=== PATIENT | female | born 1940 | race Caucasian/White ===

== ENCOUNTER 2019-08-24 10:37 | Outpatient (CLI) | payer BC, MEDICARE, SELFPAY ==
--- NOTE | ~2019-08-24 | DEXA_ITS ---
Bone Density Report Name: Sandra Brar Age: 79 Sex: Female Ethnicity: White Date of : 1940 Indication: postmenopausal; height loss; cancer; hysterectomy; Referring Provider: Carlos Arnold Study: Bone densitometry was performed. Exam Date: August 24, 2019 Accession number: [id number] Bone Density: Region BMD T-score Z-score Classification AP Spine (L2, L3) 0.909 -1.4 1.3 Osteopenia Femoral Neck (Left) 0.682 -1.5 0.8 Osteopenia Total Hip (Left) 0.863 -0.6 1.4 Normal Total Hip Bilateral Avg 0.825 -1.0 1.0 Osteopenia Femoral Neck (Right) 0.638 -1.9 0.4 Osteopenia Total Hip (Right) 0.786 -1.3 0.7 Osteopenia World Health Organization criteria for BMD impression classify patients as: Normal (T-score at or above -1.0), Osteopenia (T-score between -1.0 and -2.5), or Osteoporosis (T-score at or below -2.5). 10-year Fracture Risk: FRAX not reported because: Treated for osteoporosis Clinical Information Provided by Patient: Is being treated for osteoporosis Has used the following medications: Fosamax (i.e. alendronate), Vitamin D Has the following medical conditions: Cancer, Hysterectomy Patient maximum height was 67 Menopause Age: 49 Drinks caffeinated beverages Onset of menses at age 15 Number of children 2 Impression: The patient has low bone mass, based on the Right Femoral Neck T-score. Discussion: It is important to ask patients whether they are taking their medications and to encourage continued and appropriate compliance with their osteoporosis therapies to reduce fracture risk. It is also important to review their risk factors and encourage appropriate calcium and vitamin D intakes, exercise, fall prevention and other lifestyle measures. Follow-Up: Consider a repeat BMD and Vertebral Fracture Assessment (VFA) exam in 2 years or sooner if medically necessary, to reassess this patient's status. Reported by: YENNY on 08/24/2019 11:15:00 AM. Reviewed, dictated and finalized at location [facility]
== END 2019-08-24 10:38 | disposition home or self-care (01) ==
LOC: ANHIMG 10:50
PROVIDERS: PCP Internal Medicine; Visit Provider Internal Medicine Hematology & Oncology
DX: M81.0 Age-related osteoporosis without current pathological fracture (principal); M85.88 Other specified disorders of bone density and structure, other site; M85.852 Other specified disorders of bone density and structure, left thigh; M85.851 Other specified disorders of bone density and structure, right thigh
CPT/HCPCS: 77080

== ENCOUNTER 2019-08-30 09:36 | Outpatient (CLI) | payer BC, MEDICARE, SELFPAY ==
[2019-08-30 10:05] LABS: Basophils Percent Auto 0.7 % (0.2-1.2); Eosinophils Absolute Auto 0.2 K/mm3 (0-0.3); Eosinophils Percent Auto 5.3 % (0-4.4); Hematocrit 38.5 % (37.0-47.0); Hemoglobin 12.6 g/dL (12.0-15.0); Immature Granulocyte Absolute 0.02 K/mm3 (0.00-0.031); Immature Granulocyte Percent A 0.5 % (0-0.5); Lymphocytes Absolute Auto 0.83 K/mm3 (0.9-3.2); Lymphocytes Percent Auto 19.3 % (18.3-44.2); Mean Corpuscular HGB Conc 32.7 g/dl (32-36); Mean Corpuscular Hemoglobin 30.2 pg (26-34); Mean Corpuscular Volume 92.3 fl (80-100); Mean Platelet Volume 10.3 fl (7.4-10.4); Monocytes Absolute Auto 0.5 K/mm3 (0.1-0.6); Monocytes Percent Auto 10.5 % (2.6-8.5); Neutrophils Absolute Auto 2.7 K/mm3 (1.3-6.7); Neutrophils Percent Auto 63.7 % (45.5-73.1); Platelet Count Result 241 k/mm3 (150-375); Red Blood Count 4.17 M/mm3 (4.2-5.4); Red Cell Distribution Width 12.9 % (11.5-14.5); White Blood Count 4.3 K/mm3 (4.5-10.0)
[2019-08-30 10:09] LABS: Blood Urea Nitrogen 8 mg/dL (8-26); Carbon Dioxide 30 mmol/L (22-30); Chloride 100 mmol/L (98-109); Estimated Glomerular Filt Rate > 60; Glucose 76 mg/dL (70-105); Potassium 3.9 mmol/L (3.5-4.9); Sodium 137 mmol/L (138-146)
[2019-08-30 11:58] LABS: Alanine Aminotransferase 18 U/L (4-35); Albumin Level 4.1 g/dL (3.5-5.1); Alkaline Phosphatase 78 U/L (38-126); Aspartate Amino Transferase 28 U/L (14-36); Bilirubin,Total 0.6 mg/dL (0.2-1.3); Blood Urea Nitrogen 9 mg/dL (7-17); Calcium 9.5 mg/dL (8.4-10.2); Carbon Dioxide 28 mmol/L (22-30); Chloride 96 mmol/L (98-107); Estimated Glomerular Filt Rate > 60; Glucose 73 mg/dL (65-105); Potassium 4.3 mmol/L (3.4-5.0); Sodium 136 mmol/L (137-145)
== END 2019-08-30 09:37 | disposition home or self-care (01) ==
PROVIDERS: PCP Internal Medicine; Visit Provider Internal Medicine Hematology & Oncology
DX: C50.511 Malignant neoplasm of lower-outer quadrant of right female breast (principal); Z17.0 Estrogen receptor positive status [ER+]
CPT/HCPCS: 36415; 80048; 80053; 85025

== ENCOUNTER 2019-12-31 08:00 | Outpatient (CLI) | payer BC, MEDICARE, SELFPAY ==
[2019-12-31 08:26] LABS: Alanine Aminotransferase 23 U/L (4-35); Albumin Level 4.6 g/dL (3.5-5.1); Alkaline Phosphatase 79 U/L (38-126); Aspartate Amino Transferase 50 U/L (14-36); Bilirubin,Total 0.5 mg/dL (0.2-1.3); Blood Urea Nitrogen 14 mg/dL (7-17); Carbon Dioxide 29 mmol/L (22-30); Chloride 101 mmol/L (98-107); Cholesterol 133 mg/dL (0-200); Estimated Glomerular Filt Rate > 60; Glucose 95 mg/dL (65-105); HDL Direct 68 mg/dL; Potassium 4.1 mmol/L (3.4-5.0); Sodium 136 mmol/L (137-145); Triglycerides 89 mg/dL (<150)
[2019-12-31 08:37] LABS: LDL Cholesterol Direct 49 mg/dL
[2019-12-31 08:57] LABS: Thyroid Stimulating Hormone 0.569 uIU/mL (0.465-4.680)
== END 2019-12-31 08:01 | disposition home or self-care (01) ==
LOC: ANHLAB 08:02
PROVIDERS: PCP Nurse Practitioner; Visit Provider Nurse Practitioner
DX: E03.9 Hypothyroidism, unspecified (principal); E78.5 Hyperlipidemia, unspecified
CPT/HCPCS: 36415; 80053; 80061; 84439; 84443

== ENCOUNTER 2020-06-30 10:39 | Outpatient (CLI) | payer BC, MEDICARE, SELFPAY ==
[2020-06-30 11:13] LABS: Alanine Aminotransferase 21 U/L (4-35); Albumin Level 4.5 g/dL (3.5-5.1); Alkaline Phosphatase 77 U/L (38-126); Anion Gap 6 mmol/L (8-16); Aspartate Amino Transferase 32 U/L (14-36); Bilirubin,Total 0.6 mg/dL (0.2-1.3); Blood Urea Nitrogen 11 mg/dL (7-17); Calcium 9.1 mg/dL (8.4-10.2); Carbon Dioxide 30 mmol/L (22-30); Chloride 102 mmol/L (98-107); Cholesterol 175 mg/dL (0-200); Estimated Glomerular Filt Rate > 60; Glucose 108 mg/dL (65-105); HDL Direct 73 mg/dL; Sodium 138 mmol/L (137-145); Triglycerides 113 mg/dL (<150)
[2020-06-30 11:24] LABS: LDL Cholesterol Direct 73 mg/dL
[2020-06-30 11:43] LABS: Thyroid Stimulating Hormone 0.889 uIU/mL (0.465-4.680)
[2020-06-30 11:55] LABS: Vitamin D 25 Hydroxy 51.5 ng/mL
== END 2020-06-30 10:40 | disposition home or self-care (01) ==
PROVIDERS: PCP Internal Medicine; Visit Provider Nurse Practitioner
DX: E78.5 Hyperlipidemia, unspecified (principal); E55.9 Vitamin D deficiency, unspecified; E03.9 Hypothyroidism, unspecified
CPT/HCPCS: 36415; 80053; 80061; 82306; 84443

== ENCOUNTER 2020-07-21 13:16 | Outpatient (CLI) | payer BC, MEDICARE, SELFPAY ==
--- NOTE | ~2020-07-21 | MM_ITS ---
EXAMINATION: MM diagnostic laith BI w archana HISTORY: Right breast cancer in 2019 TECHNIQUE: ML, MLO and craniocaudal 3-D tomosynthesis images of both breasts were performed and synth etic 2-D images were generated. CAD analysis was submitted and interpreted. COMPARISON: 03/12/2019 postbiopsy mammogram 01/14/2019 diagnostic right digital mammogram 12/31/2018 bilateral digital screening mammogram BREAST PARENCHYMAL COMPOSITION: There are scattered areas of fibroglandular density. FINDINGS: There is postoperative change from right partial mastectomy for breast cancer and left redu ction mammoplasty. There is evidence of fat necrosis on the left. There are scattered bilateral benig n breast calcifications. No suspicious mass or suspicious architectural distortion or malignant calcification is evident on ei ther side. IMPRESSION: 1. Status post right partial mastectomy for breast cancer and left reduction mammoplasty 2. No mammographic evidence of malignancy is noted at this time. BI-RADS Category 2: Benign finding(s). Reviewed, dictated and finalized at location A. OLOGIST IMPRESSION: 1. Status post right partial mastectomy for breast cancer and left reduction ma mmoplasty 2. No mammographic evidence of malignancy is noted at this time. BI-RADS Category 2: Benign finding(s).
== END 2020-07-21 13:17 | disposition home or self-care (01) ==
LOC: ANHIMG 13:18
PROVIDERS: PCP Internal Medicine; Visit Provider Internal Medicine Hematology & Oncology
DX: C50.511 Malignant neoplasm of lower-outer quadrant of right female breast (principal); Z17.0 Estrogen receptor positive status [ER+]
CPT/HCPCS: 77061; 77062; 77065; 77066; G0279

== ENCOUNTER 2021-01-05 08:47 | Outpatient (CLI) | payer BC, MEDICARE, SELFPAY ==
[2021-01-05 09:28] LABS: Alanine Aminotransferase 15 U/L (4-35); Albumin Level 4.2 g/dL (3.5-5.1); Alkaline Phosphatase 57 U/L (38-126); Anion Gap 7 mmol/L (8-16); Aspartate Amino Transferase 31 U/L (14-36); Bilirubin,Total 0.7 mg/dL (0.2-1.3); Blood Urea Nitrogen 9 mg/dL (7-17); Calcium 9.1 mg/dL (8.4-10.2); Carbon Dioxide 26 mmol/L (22-30); Chloride 103 mmol/L (98-107); Cholesterol 141 mg/dL (0-200); Estimated Glomerular Filt Rate > 60; Glucose 95 mg/dL (65-105); HDL Direct 67 mg/dL; Potassium 4.1 mmol/L (3.4-5.0); Sodium 136 mmol/L (137-145); Triglycerides 67 mg/dL (<150)
[2021-01-05 09:39] LABS: LDL Cholesterol Direct 48 mg/dL
[2021-01-05 09:57] LABS: Thyroid Stimulating Hormone 0.132 uIU/mL (0.465-4.680)
== END 2021-01-05 08:48 | disposition home or self-care (01) ==
PROVIDERS: PCP Internal Medicine; Visit Provider Internal Medicine
DX: I10 Essential (primary) hypertension (principal); Z79.899 Other long term (current) drug therapy; E55.9 Vitamin D deficiency, unspecified; E03.9 Hypothyroidism, unspecified; E78.5 Hyperlipidemia, unspecified
CPT/HCPCS: 36415; 80053; 80061; 82306; 84443

== ENCOUNTER 2021-02-20 10:12 | Outpatient (CLI) | payer BC, MEDICARE, SELFPAY ==
[2021-02-20 09:28] LABS: Alanine Aminotransferase 17 U/L (4-35); Albumin Level 4.5 g/dL (3.5-5.1); Alkaline Phosphatase 68 U/L (38-126); Anion Gap 6 mmol/L (8-16); Aspartate Amino Transferase 29 U/L (14-36); Bilirubin,Total 0.7 mg/dL (0.2-1.3); Blood Urea Nitrogen 14 mg/dL (7-17); Calcium 9.1 mg/dL (8.4-10.2); Carbon Dioxide 29 mmol/L (22-30); Chloride 102 mmol/L (98-107); Cholesterol 139 mg/dL (0-200); Estimated Glomerular Filt Rate > 60; Glucose 90 mg/dL (65-110); HDL Direct 80 mg/dL; Potassium 4.6 mmol/L (3.4-5.0); Sodium 137 mmol/L (137-145); Triglycerides 67 mg/dL (<150)
[2021-02-20 09:32] LABS: LDL Cholesterol Direct 42 mg/dL
[2021-02-20 09:50] LABS: Thyroid Stimulating Hormone 0.676 uIU/mL (0.465-4.680)
[2021-02-20 19:49] LABS: Vitamin D 25 Hydroxy 63.6 ng/mL
== END 2021-02-20 10:13 ==
PROVIDERS: PCP Internal Medicine; Visit Provider Nurse Practitioner
DX: E03.9 Hypothyroidism, unspecified (principal); E55.9 Vitamin D deficiency, unspecified; M81.0 Age-related osteoporosis without current pathological fracture; E78.5 Hyperlipidemia, unspecified
CPT/HCPCS: 36415; 80053; 80061; 82306; 84443

== ENCOUNTER 2021-07-14 09:18 | Outpatient (CLI) | payer MEDICARE, SELFPAY ==
[2021-07-14 10:07] LABS: Alanine Aminotransferase 19 U/L (4-35); Albumin Level 4.5 g/dL (3.5-5.1); Alkaline Phosphatase 67 U/L (38-126); Anion Gap 8 mmol/L (8-16); Aspartate Amino Transferase 29 U/L (14-36); Bilirubin,Total 0.6 mg/dL (0.2-1.3); Blood Urea Nitrogen 17 mg/dL (7-17); Carbon Dioxide 28 mmol/L (22-30); Chloride 99 mmol/L (98-107); Cholesterol 143 mg/dL (0-200); Estimated Glomerular Filt Rate > 60; Glucose 100 mg/dL (65-110); HDL Direct 74 mg/dL; Potassium 4.3 mmol/L (3.4-5.0); Sodium 135 mmol/L (137-145); Triglycerides 70 mg/dL (<150)
[2021-07-14 10:18] LABS: LDL Cholesterol Direct 50 mg/dL
[2021-07-14 10:37] LABS: Thyroid Stimulating Hormone 0.644 uIU/mL (0.465-4.680)
== END 2021-07-14 09:19 | disposition home or self-care (01) ==
PROVIDERS: PCP Internal Medicine; Visit Provider Internal Medicine
DX: Z51.81 Encounter for therapeutic drug level monitoring (principal); Z79.899 Other long term (current) drug therapy; E78.5 Hyperlipidemia, unspecified; E03.9 Hypothyroidism, unspecified; I10 Essential (primary) hypertension
CPT/HCPCS: 36415; 80053; 80061; 84443

== ENCOUNTER 2021-12-10 08:28 | Outpatient (CLI) | payer MEDICARE, SELFPAY ==
--- NOTE | ~2021-12-10 | DEXA_ITS ---
Bone Density Report Name: Sandra Brar Age: 81 Sex: Female Ethnicity: White Date of : 1940 Indication: osteopenia; height loss; cancer; hysterectomy; postmenopausal Referring Provider: LENARD PEDROZA Study: Bone densitometry was performed. Exam Date: December 10, 2021 Accession number: [id number] Bone Density: Region BMD T-score Z-score Classification AP Spine(L2, L3, L4) 0.963 -1.1 1.8 Osteopenia Femoral Neck (Left) 0.662 -1.7 0.7 Osteopenia Total Hip (Left) 0.846 -0.8 1.4 Normal Femoral Neck (Right) 0.655 -1.7 0.6 Osteopenia Total Hip (Right) 0.825 -1.0 1.2 Normal Total Hip Mean 0.836 -0.9 1.3 Normal World Health Organization criteria for BMD impression classify patients as: Normal (T-score at or above -1.0), Osteopenia (T-score between -1.0 and -2.5), or Osteoporosis (T-score at or below -2.5). 10-year Fracture Risk(1): Major Osteoporotic Fracture 14% Hip Fracture 3.8% Reported Risk Factors: [place] (), Neck BMD=0.655, BMI=30.3 (1) FRAX(R) Version 3.08. Fracture probability calculated for an untreated patient. Fracture probability may be lower if the patient has received treatment. Previous Exams: Region Exam Age BMD T-score BMD Change BMD Change Date g/cm2 vs Baseline vs Previous Total Hip(Left) 12/10/2021 81 0.846 -0.8 -0.017 (-1.9%) -0.017 (-1.9%) 08/24/2019 79 0.863 -0.6 Total Hip(Right) 12/10/2021 81 0.825 -1.0 0.039 (4.9%)* 0.039 (4.9%)* 08/24/2019 79 0.786 -1.3 *Denotes significance at 95% confidence level, LSC for Total Hip = 0.027 g/cm2 Clinical Information Provided by Patient: Has used the following medications: Vitamin D, Calcium Has the following medical conditions: Cancer, Hysterectomy Patient maximum height was 67 Menopause Age: 49 No regular weight bearing exercise Onset of menses at age 15 Number of children 2 Impression: The patient has low bone mass, based on the Left Femoral Neck T-score. The patient has an estimated ten-year risk of hip fracture of 3.8% and an estimated ten-year risk of major fracture of 14%, based on the WHO FRAX algorithm. No significant bone loss was observed. Discussion: BONE DENSITY IS LOW AT ONE OR MORE SKELETAL SITES. THE PATIENT'S BMD AND CLINICAL RISK FACTORS CONTRIBUTE TO THIS PATIENT'S INCREASED RISK OF FRACTURE. This patient's lowest T-score is low at one or more skeletal sites. It meets the World Health Organization's (WHO) criteria for ?low bone mass? (T-score between -1.0
--- NOTE | ~2021-12-10 | MM_ITS ---
EXAMINATION: MM screening laith BI w archana HISTORY: Screening mammogram, family history of breast cancer in her daughter. TECHNIQUE: Craniocaudal and mediolateral oblique 3-D tomosynthesis images were obtained and synthetic 2-D images were generated. CAD analysis was submitted and interpreted. COMPARISON: 07/21/2020, 01/14/2019, 12/31/2018, 08/31/2016 BREAST PARENCHYMAL COMPOSITION: There are scattered areas of fibroglandular density. FINDINGS: Changes of lumpectomy on the right and bilateral reduction mammoplasty are noted. There is no suspicious mass, calcification, or architectural distortion to suggest malignancy in either breast . There has been no suspicious interval change. IMPRESSION: 1. No mammographic evidence of malignancy. 2. Recommend routine screening mammography while the patient remains in good health. BI-RADS Category 2: Benign finding(s). Reviewed, dictated and finalized at location A. IMPRESSION: 1. No mammographic evidence of malignancy. 2. Recommend routine screening mammography while the patient remains in good he alth. BI-RADS Category 2: Benign finding(s).
== END 2021-12-10 08:29 | disposition home or self-care (01) ==
LOC: ANHIMG 08:30
PROVIDERS: PCP Internal Medicine; Visit Provider Nurse Practitioner
DX: Z12.31 Encounter for screening mammogram for malignant neoplasm of breast (principal); Z78.0 Asymptomatic menopausal state; M85.89 Other specified disorders of bone density and structure, multiple sites
CPT/HCPCS: 77063; 77067; 77080

== ENCOUNTER 2022-02-15 09:26 | Outpatient (CLI) | payer MEDICARE, SELFPAY ==
[2022-02-15 10:22] LABS: Alanine Aminotransferase 14 U/L (6-35); Albumin Level 4.4 g/dL (3.5-5.1); Alkaline Phosphatase 66 U/L (38-126); Anion Gap 8 mmol/L (8-16); Aspartate Amino Transferase 28 U/L (14-36); Bilirubin,Total 0.6 mg/dL (0.2-1.3); Blood Urea Nitrogen 8 mg/dL (7-17); Carbon Dioxide 28 mmol/L (22-30); Chloride 98 mmol/L (98-107); Cholesterol 136 mg/dL (0-200); Estimated Glomerular Filt Rate > 60; Glucose 95 mg/dL (65-110); HDL Direct 68 mg/dL; Potassium 4.1 mmol/L (3.4-5.0); Sodium 134 mmol/L (137-145); Triglycerides 99 mg/dL (<150)
[2022-02-15 10:32] LABS: LDL Cholesterol Direct 35 mg/dL
[2022-02-15 10:41] LABS: Vitamin D 25 Hydroxy 80.9 ng/mL
[2022-02-15 10:50] LABS: Thyroid Stimulating Hormone 0.486 uIU/mL (0.465-4.680)
== END 2022-02-15 09:27 | disposition home or self-care (01) ==
LOC: ANHLAB 09:28
PROVIDERS: PCP Internal Medicine; Visit Provider Nurse Practitioner
DX: E78.5 Hyperlipidemia, unspecified (principal); E03.9 Hypothyroidism, unspecified; E55.9 Vitamin D deficiency, unspecified
CPT/HCPCS: 36415; 80053; 80061; 82306; 84443

== ENCOUNTER 2022-06-01 13:27 | Observation (INO) | payer MEDICARE, SELFPAY ==
[2022-06-01] VITALS (30 sets, daily range): BP systolic 124–150; BP diastolic 71–96; PULSE 68–115; RESP 10–26; TEMP 36.2–36.8; O2SAT 95–99; BMI 27.2
--- NOTE | ~2022-06-01 | CT_ITS ---
EXAMINATION: CT brain wo con DATE: 06/01/2022 16:55 INDICATION: Headache. Dizziness. History of hypertension, transient ischemic attack. History of breas t cancer. TECHNIQUE: Computed tomography (CT) of the head was performed without intravenous contrast. The mA wa s adjusted according to patient size. Iterative reconstruction technique was employed. Exam dose: 60 5.33 mGy-cm total exam DLP. COMPARISON: 10/07/2013 MRI brain 05/02/2011 CT brain FINDINGS: Bilateral carotid siphon internal carotid artery calcifications. There is nonspecific dimin ished attenuation of the cerebral white matter, likely due to chronic small vessel ischemic changes. No intracranial mass lesion or hemorrhage or cerebrovascular accident is detected. No midline shift o r mass effect effect. Moderate cerebral volume loss. No subdural or epidural hematoma is detected. No orbital mass lesion. There is mild patchy mucoperiosteal thickening of the ethmoid air cells. There is minimal focal mucop eriosteal thickening of the sphenoid sinuses. The paranasal sinuses and mastoid air cells are otherwi se unremarkable. IMPRESSION: Cerebral atherosclerosis and chronic small vessel ischemic changes of cerebral white mat ter No acute intracranial finding Reviewed, dictated and finalized at Location A. Reviewed, dictated and finalized at location A. OR BUSINESS INTELLIGENCE ANALYST IMPRESSION: Cerebral atherosclerosis and chronic small vessel ischemic changes of cerebral white matter No acute intracranial finding
--- NOTE | ~2022-06-01 | XR_ITS ---
EXAMINATION: XR chest 2V Exam Date/Time: 06/01/2022 14:07 [employer] HISTORY: cp and weakness Comparison: 05/13/2013. RESULT: Lines, tubes, and devices: Biopsy markers in the right breast. Lungs and pleura: Scattered linear scar.. Cardiomediastinal silhouette: Stable aortic ectasia. Hiatal hernia. Other: No acute osseous or upper abdominal finding. Scoliosis, osteopenia, exaggerated thoracic kyph osis with stable multilevel mild compression fractures in the thoracic spine. IMPRESSION: No acute cardiopulmonary process. Reviewed, dictated and finalized at location K. R [employer]ON[employer]ISS[employer] VEH[employer]LE CREWMAN
--- NOTE | 2022-06-01 13:29 | ECG_ITS ---
Measurements Intervals [place] Rate: 101 P: 38 MO: 168 QRS: 47 QRSD: 139 T: -20 QT: 360 QTc: 467 Interpretive Statements SINUS TACHYCARDIA LEFT ATRIAL ENLARGEMENT RIGHT BUNDLE BRANCH BLOCK ST-T WAVE ABNORMALITY IN INFERIOR LEADS- CONSIDER ISCHEMIA ABNORMAL ECG COMPARED TO ECG 10/11/2018 09:48:05 SINUS TACHYCARDIA NOW PRESENT RIGHT BUNDLE-BRANCH BLOCK NOW PRESENT Electronically Signed On 06-01-2022 13:55:54 STERILE PROCESSING TECH by Leon Cid D.O.
[2022-06-01 14:10] LABS: Basophils Percent Auto 0.6 % (0.2-1.2); Eosinophils Percent Auto 0.6 % (0-4.4); Hematocrit 44.8 % (37.0-47.0); Hemoglobin 15.4 g/dL (12.0-15.0); Immature Granulocyte Absolute 0.02 K/mm3 (0.00-0.031); Immature Granulocyte Percent A 0.6 % (0-0.5); Lymphocytes Absolute Auto 0.96 K/mm3 (0.9-3.2); Mean Corpuscular HGB Conc 34.4 g/dl (32-36); Mean Corpuscular Volume 90.3 fl (80-100); Mean Platelet Volume 10.6 fl (7.4-10.4); Monocytes Absolute Auto 0.4 K/mm3 (0.1-0.6); Neutrophils Absolute Auto 2.2 K/mm3 (1.3-6.7); Neutrophils Percent Auto 60.2 % (45.5-73.1); Platelet Count Result 188 k/mm3 (150-375); Red Blood Count 4.96 M/mm3 (4.2-5.4); Red Cell Distribution Width 12.2 % (11.5-14.5); White Blood Count 3.6 K/mm3 (4.5-10.0)
[2022-06-01 14:20] LABS: Alanine Aminotransferase 20 U/L (6-35); Albumin Level 5.1 g/dL (3.5-5.1); Alkaline Phosphatase 89 U/L (38-126); Anion Gap 15 mmol/L (8-16); Aspartate Amino Transferase 30 U/L (14-36); Bilirubin,Total 1.2 mg/dL (0.2-1.3); Blood Urea Nitrogen 10 mg/dL (7-17); Calcium 9.9 mg/dL (8.4-10.2); Carbon Dioxide 20 mmol/L (22-30); Chloride 96 mmol/L (98-107); Estimated CRCL calculation 55 ml/min; Estimated Glomerular Filt Rate > 60; Glucose 112 mg/dL (65-110); Lipase 195 U/L (23-300); Sodium 131 mmol/L (137-145)
[2022-06-01 14:22] LABS: Prothrombin Time 12.5 Seconds (11.1-14.7)
[2022-06-01 14:23] LABS: Partial Thromboplastin Time 28.8 SECONDS (22.3-36.8)
[2022-06-01 14:32] LABS: Troponin I < 0.012 ng/mL (0.000-0.034)
--- NOTE | 2022-06-01 15:11 | ED.CHESTPAIN ---
HPI - Chest Pain General Chief Complaint: Chest Pain Stated Complaint: weakness, tightness in arms and chest Time Seen by Provider: 06/01/22 15:11 Source: patient and family Limitations: no limitations History of Present Illness HPI narrative: Patient came to the emergency room by private car complaining of headache, intermittent for years, tightness in the chest, shoulder feels tired and achy, stomach upset, arms feel like been working hard all day long. Above symptoms started 1 week ago. History of hypertension, hyperlipidemia, TIA right breast cancer status postradiation and chemotherapy 3 years ago. She denies shortness of breath. Patient on Plavix. Currently her main complaint is headache which is similar to the previous ones, no specific diagnosis Related Data Home Medications Medication Instructions Recorded Confirmed calcium carbonate 600 mg calcium 600 mg PO BID 05/23/19 05/19/22 (1,500 mg) tablet (Calcium) losartan 100 mg tablet (Cozaar) 100 mg PO DAILY 05/23/19 05/19/22 anastrozole 1 mg tablet 1 mg PO DAILY 02/28/20 05/19/22 denosumab 60 mg/mL subcutaneous 60 mg subcut [id number] 12/13/21 05/19/22 syringe (Prolia) Allergies Allergy/AdvReac Type Severity Reaction Status Date / Time adhesive tape Allergy Mild Rash Verified 05/19/22 12:36 alprazolam Allergy Mild Vomiting Verified 05/19/22 12:36 aspirin Allergy Mild Rash Verified 05/19/22 12:36 milk Allergy Mild Diarrhea Verified 05/19/22 12:36 dipyridamole AdvReac Severe SEVERE N/V Verified 05/19/22 12:36 Contrast Media AdvReac Intermediate Hives / Uncoded 05/19/22 12:36 Red Face Review of Systems Review of Systems: All systems reviewed & are unremarkable except as noted in HPI and below PMFSH Past Medical History Medical History (Updated 06/01/22 @ 18:50 by Jake Ruffin MD) Cancer of right breast Dermatitis Diverticulitis Gastroesophageal reflux disease Hyperlipidemia Hypothyroidism associated with surgical procedure Multiple lung nodules Transient ischemic attack Vitamin D deficiency Surgical History Surgical History (Updated 06/01/22 @ 18:45 by Amy Manjarrez PA-C) History of bilateral salpingectomy History of hysterectomy History of lumpectomy of right breast History of parathyroidectomy History of partial thyroidectomy For benign mass. History of repair of hiatal hernia Family History Family History Sibling Family history of primary malignant neoplasm of liver, Onset Age: 65 Family history of heart disease in male family member before age 55, Onset Age: 70 Patient's sister is in good health Asthma Cancer Sister. Unknown cancer Mother Diabetes mellitus Family history of diabetes mellitus in first degree relative Patient's mother is Cerebrovascular accident, Onset Age: 85 Father Family history of malignant neoplasm, Onset Age: 65 Possibly lung cancer Patient's father is Daughter Breast cancer, Onset Age: 47 DCIS. Genetic testing showed no mutations Other Ovarian cancer, Onset Age: 35 Niece Other Family history of alcoholism Family history of arthritis Hypertension Social History Social History Social History: Surrogate medical decision maker: Vania Segal, daughter. Code status: Full code. Smoking status: Never smoker Second hand tobacco smoke exposure: No Alcohol intake: never Substance use: never Substance use type: does not use Additional living arrangements comments: . Lives in own home in [place]. 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 Spiritual care concerns: No Exam Narrative: General appearance: Well-developed, well-nourished Skin: Normal color Head: Normocephalic, nontraumatic Eyes: Clear conjunctiva ENT: Oropharynx normal, ears normal, no
--- NOTE | 2022-06-01 18:00 | PM.IMHP ---
H&P: HPI History of Present Illness Date/Time: 06/01/22 18:00 Chief Complaint: Headache, shoulder, and chest pain. Narrative: This is a very pleasant 82-year-old female with history of right breath cancer status post lumpectomy and radiation therapy in 2019, hypertension, hyperlipidemia, hypothyroidism, and osteoporosis who presented to the ED for evaluation of headache, shoulder, and chest pain. She has had the symptoms for approximately 1 week and she describes a ?low-grade headache? which seems to radiate down the neck and into the shoulders, occasionally to the anterior chest. She sees no pattern as to when this occurs and she specifically denies that is related to exertion. It will sometimes last hours before resolving without intervention and she tends to feel quite weak and fatigued thereafter. The last couple of days she has not had much of an appetite and has not been eating well. For the last week or so she has had some mild rhinorrhea and some of her family members have had similar symptoms. She denies near syncope, syncope, fever, chills, sweats, sore throat, cough, pleuritic pain, sensations of racing heart, palpitations, nausea, vomiting, abdominal pain, epigastric pain, bloating, belching, melena, hematochezia, and diarrhea. EKG in the emergency department showed a sinus tachycardia with right bundle-branch block and ST T-wave abnormalities in inferior leads. Initial troponin was negative and other labs were significant for a WBC of 3.6, hemoglobin 15.4, sodium 131, chloride 96. I was asked to admit the patient in this setting to rule out acute coronary syndrome and while awaiting bed placement she did test positive for COVID-19. Review of Systems Review of Systems: Twelve systems were reviewed and are negative except for as per HPI. [facility] Past Medical History Medical History Cancer of right breast Dermatitis Diverticulitis Gastroesophageal reflux disease Hyperlipidemia Hypothyroidism associated with surgical procedure Multiple lung nodules Transient ischemic attack Vitamin D deficiency Surgical History Surgical History History of bilateral salpingectomy History of hysterectomy History of lumpectomy of right breast History of parathyroidectomy History of partial thyroidectomy For benign mass. History of repair of hiatal hernia Family History Family History Sibling Family history of primary malignant neoplasm of liver, Onset Age: 65 Family history of heart disease in male family member before age 55, Onset Age: 70 Patient's sister is in good health Asthma Cancer Sister. Unknown cancer Mother Diabetes mellitus Family history of diabetes mellitus in first degree relative Patient's mother is Cerebrovascular accident, Onset Age: 85 Father Family history of malignant neoplasm, Onset Age: 65 Possibly lung cancer Patient's father is Daughter Breast cancer, Onset Age: 47 DCIS. Genetic testing showed no mutations Other Ovarian cancer, Onset Age: 35 Niece Other Family history of alcoholism Family history of arthritis Hypertension Social History Social History Social History: Surrogate medical decision maker: Vania Segal, daughter. Code status: Full code. Smoking status: Never smoker Second hand tobacco smoke exposure: No Alcohol intake: never Substance use: never Substance use type: does not use Lack of Transportation: No Lack of Food: Never True Current Housing: I Have Housing Concerned About Future Housing: No Difficulty Paying Gas/Electric Bills: No Difficulty Paying for Meds: No Currently Unemployed: No Education: High School Diploma/GED Difficulty w/ Childcare or
[2022-06-01 18:04] LABS: Erythrocyte Sedimentation Rate 14 mm/hr (0-20)
[2022-06-01 18:06] LABS: Troponin I < 0.012 ng/mL (0.000-0.034)
[2022-06-01 18:38] LABS: Influenza A QL RT-PCR Negative (Negative); Influenza B QL RT-PCR Negative (Negative); RSV RNA, RT-PCR Negative (Negative); SARS-CoV-2 RNA PCR Positive
[2022-06-01 19:47] LABS: Thyroid Stimulating Hormone 0.601 uIU/mL (0.465-4.680)
[2022-06-01 20:55] LABS: Troponin I < 0.012 ng/mL (0.000-0.034)
--- NOTE | 2022-06-01 21:53 | ADMGEN ---
This patient, Sandra Brar, was admitted to IMU Room 213-01. Patient/family oriented to hospital policies and general routines including ID bracelet, bed and alarms, visiting hours, pain management, procedures, bathroom and other care routines, personal items, smoking policy, room service/diet, and visiting hours. Information on how to activate the Rapid Response Team has been discussed. Patient/Family are encouraged to report perceived risks to care and to ask questions if they do not understand what they are told or what they should do.
[2022-06-01] MEDS: SODIUM CHLORIDE 0.9% IV 1,000 ML 100 ML IV CONT (23:38)
[2022-06-02] VITALS (8 sets, daily range): BP systolic 129–147; BP diastolic 67–77; PULSE 61–94; RESP 16–20; TEMP 36.3–36.6; O2SAT 94–98
[2022-06-02 05:13] LABS: Hematocrit 38.3 % (37.0-47.0); Hemoglobin 13.2 g/dL (12.0-15.0); Mean Corpuscular HGB Conc 34.5 g/dl (32-36); Mean Corpuscular Volume 89.9 fl (80-100); Platelet Count Result 159 k/mm3 (150-375); Red Blood Count 4.26 M/mm3 (4.2-5.4); Red Cell Distribution Width 12.1 % (11.5-14.5); White Blood Count 3.1 K/mm3 (4.5-10.0)
[2022-06-02 05:27] LABS: Alanine Aminotransferase 16 U/L (6-35); Albumin Level 3.9 g/dL (3.5-5.1); Alkaline Phosphatase 59 U/L (38-126); Anion Gap 7 mmol/L (8-16); Aspartate Amino Transferase 24 U/L (14-36); Bilirubin,Total 0.7 mg/dL (0.2-1.3); Blood Urea Nitrogen 10 mg/dL (7-17); CRP < 0.5 mg/dL (<1.0); Calcium 8.3 mg/dL (8.4-10.2); Carbon Dioxide 24 mmol/L (22-30); Chloride 102 mmol/L (98-107); Estimated CRCL calculation 55 ml/min; Estimated Glomerular Filt Rate > 60; Glucose 84 mg/dL (65-110); Lactate Dehydrogenase 145 U/L (120-246); Magnesium 1.8 mg/dL (1.6-2.3); Sodium 133 mmol/L (137-145)
[2022-06-02] MEDS: LEVOTHYROXINE SODIUM 12.5 MCG TABLET PO (05:59)
[2022-06-02] MEDS: LEVOTHYROXINE SODIUM 25 MCG TABLET PO (05:59)
[2022-06-02 06:06] LABS: Thyroid Stimulating Hormone Reflex 0.438 uIU/mL (0.465-4.68)
[2022-06-02] MEDS: CALCIUM CARBONATE (OSCAL) 500 MG TABLET PO (09:45)
[2022-06-02] MEDS: ATORVASTATIN 20 MG TABLET PO (09:45)
[2022-06-02] MEDS: CLOPIDOGREL BISULFATE 75 MG TABLET PO (09:45)
[2022-06-02] MEDS: ANASTROZOLE (*CHEMO) 1 MG TABLET PO (09:45)
[2022-06-02] MEDS: amLODIPine BESYLATE 5 MG TABLET 10 MG PO (09:45)
[2022-06-02] MEDS: ENOXAPARIN 40 MG/0.4 ML SYRINGE SUB-Q (09:45)
[2022-06-02] MEDS: CHOLECALCIFEROL 1,000 UNITS TABLET 2000 UNITS PO (09:45)
[2022-06-02] MEDS: IRBESARTAN 150 MG TABLET 300 MG PO (09:45)
[2022-06-02 13:34] LABS: Free T4 Free Thyroxine Reflex 2.05 ng/dL (0.78-2.19)
[2022-06-02 14:17] LABS: Total Triiodothyronine (T3) 1.07 NG/ML (0.97-1.69)
--- NOTE | 2022-06-02 14:25 | PM.DS ---
DS: Admitting Diagnosis Discharge Date 06/02/2022 Admitting Diagnosis chest pain, myalgia DS: Discharge Diagnosis Discharge Diagnosis (1) Myalgia: Code(s): M79.10 - Myalgia, unspecified site Status: Acute (2) COVID-19: Code(s): U07.1 - COVID-19 Status: Acute DS: Summary Hospital Course Hospital Course: This is a very pleasant 82-year-old female with history of right breath cancer status post lumpectomy and radiation therapy in 2019, hypertension, hyperlipidemia, hypothyroidism, and osteoporosis who presented to the ED for evaluation of headache, shoulder, and chest pain. For the last week or so she has had some mild rhinorrhea and some of her family members have had similar symptoms. EKG in the emergency department showed a sinus tachycardia with right bundle-branch block and ST T-wave abnormalities in inferior leads.? Initial troponin was negative and other labs were significant for a WBC of 3.6, hemoglobin 15.4, sodium 131, chloride 96. patient was admitted to rule out acute coronary syndrome and while awaiting bed placement she did test positive for COVID-19 concurrently has no chest pain. Troponins have been negative. She is asymptomatic from COVID standpoint. She is stable and is being discharged home. Time Spent with Patient Time attestation: Total time spent providing and/or coordinating discharge services: Exam Const: Other: Mildly ill-appearing female sitting up in bed. Weight: 67.5 kilograms. BMI: 27.2. HENMT: Other: Normocephalic, atraumatic. Nares pain bilaterally. Tacky mucous membranes. Eyes: Other: Wearing corrective lenses. Sclerae anicteric. Pupils are reactive. Extraocular motions intact. Neck: Other: Supple. No lymphadenopathy or JVD. No midline vertebral tenderness. Some discomfort with palpation over the cervical paraspinous muscles bilaterally. Chest: Other: No tenderness to palpation over the chest wall. Resp: Other: Respirations are nonlabored and lungs are clear to auscultation. Cardio: Other: Regular rate rhythm with normal S1-S2. GI: Other: Abdomen is soft, nontender, and nondistended with positive bowel sounds. Skin: Other: Warm and dry. Neuro: Other: Alert. Cranial nerves 2-12 are grossly intact. No gross focal deficits to casual conversation. Extrem: Other: No cyanosis, clubbing, or edema. Peripheral pulses intact. Psych: Other: Pleasant and cooperative. Appropriate mood and affect. DS: Data Data Completed and Pending Labs on day of discharge: Labs from last 24 hours 06/02/22 06/02/22 06/02/22 05:03 05:03 05:03 WBC RBC Hgb Hct MCV MCH MCHC RDW Plt Count MPV ESR Sodium Potassium Chloride Carbon Dioxide Anion Gap BUN Creatinine Estim Creat Clear Calc Estimated GFR Glucose Calcium Magnesium Ferritin 113.00 Total Bilirubin AST ALT Alkaline Phosphatase Lactate Dehydrogenase Troponin I C-Reactive Protein Total Protein Albumin TSH TSH (Reflex) 0.438 L Free T4 2.05 Total T3 1.07 Influenza A (RT-PCR) Influenza B (RT-PCR) RSV (RT-PCR) SARS-CoV-2 RNA (RT-PCR) 06/02/22 06/02/22 06/01/22 05:03 05:03 20:14 WBC 3.1 L RBC 4.26 Hgb 13.2 Hct 38.3 MCV 89.9 MCH 31.0 MCHC 34.5 RDW 12.1 Plt Count 159 MPV 11.0 H ESR Sodium 133 L Potassium 4.0 Chloride 102 Carbon Dioxide 24 Anion Gap 7 L BUN 10 Creatinine 0.60 L Estim Creat Clear Calc 55 Estimated GFR > 60 Glucose 84 Calcium 8.3 L Magnesium 1.8 Ferritin Total Bilirubin 0.7 AST 24 ALT 16 Alkaline Phosphatase 59 Lactate Dehydrogenase 145 Troponin I < 0.012 C-Reactive Protein < 0.5 Total Protein 7.0 Albumin 3.9 TSH TSH (Reflex) Free T4 Total T3 Influenza A (RT-PCR) Influenza B (RT-PCR) RSV (RT-PCR)
--- NOTE | 2022-06-02 22:41 | ECHO_ITS ---
Patient Info Name: Sandra Brar Age: 82 years : 1940 Gender: Female Ht: 62 in Wt: 148 lbs BSA: 1.73 m2 HR: 88 bpm BP: 130 / 77 mmHg Heart Rhythm: Sinus Rhythm Exam Date: 06/02/2022 2:38 PM Exam Location: [facility] Pulmonary Patient Status: Outpatient Admit Date: 06/01/2022 Staff Ordering Physician: Amy Manjarrez PA-C Home Stager: Carlitos Bentley, [place], RT Attending Provider: Noble Hyman MD Referring Physician: Josseline YA; Exam Type: CA echo doppler color flow Study Info Indications R07.89 - Other chest pain I10 - Essential (primary) hypertension R94.31 - Abnormal electrocardiogram ECG EKG Complete two-dimensional, color flow and Doppler transthoracic echocardiogram is performed. Strain analysis performed. Summary 1. Complete two-dimensional, color flow and Doppler transthoracic echocardiogram is performed. 2. Left ventricular systolic function is hyperdynamic, estimated at >70%. 3. There is mildly increased left ventricular wall thickness. 4. The left ventricular diastolic function is grade I diastolic dysfunction. 5. Right ventricular systolic function is normal. 6. There is mild tricuspid valve regurgitation. Left Ventricle Left ventricular chamber dimension is normal. Left ventricular systolic function is hyperdynamic, estimated at >70%. There is mildly increased left ventricular wall thickness. The left ventricular diastolic function is grade I diastolic dysfunction. Right Ventricle Right ventricular chamber dimension is normal. Right ventricular systolic function is normal. Left Atria Left atrial chamber dimension is normal. Right Atria Right atrial chamber dimension is normal. Aortic Valve The aortic valve is probable trileaflet. There is no aortic valve stenosis. There is no aortic valve regurgitation. Pulmonic Valve The pulmonic valve is not well visualized. Mitral Valve The mitral valve has normal leaflets. There is no mitral valve stenosis. There is trace mitral valve regurgitation. Tricuspid Valve There is mild tricuspid valve regurgitation. Pericardium/Pleural There is trivial pericardial effusion. Aorta The aortic root size at the sinus of Valsalva is normal. Left Ventricular Outflow Tract Name Value Normal LVOT 2D LVOT Diameter 2.1 cm LVOT Doppler LVOT Peak Gradient 6 mmHg LVOT Mean Gradient 3 mmHg LVOT VTI 23 cm LVOT VTI/AV VTI Ratio 0.8 LVOT Stroke Volume 79 ml LVOT CO 6.8 l/min LVOT CI 3.9 l/min/m2 Mitral Valve Name Value Normal MV Doppler MV Decel [place] 208 cm/s2 MV PHT 80 ms MV
== END 2022-06-02 16:29 | disposition home or self-care (01) ==
LOC: ANHED 17:31 → ANHIMU 18:23
PROVIDERS: Physician Assistant; Admitting Provider Internal Medicine; Emergency Provider Emergency Medicine; PCP Internal Medicine; Visit Provider Hospitalist
DX: M79.10 Myalgia, unspecified site (principal); U07.1 COVID-19; R07.9 Chest pain, unspecified; R51.9 Headache, unspecified; K30 Functional dyspepsia; I67.2 Cerebral atherosclerosis; R90.82 White matter disease, unspecified; I11.9 Hypertensive heart disease without heart failure; E78.5 Hyperlipidemia, unspecified; E03.9 Hypothyroidism, unspecified; K21.9 Gastro-esophageal reflux disease without esophagitis; R00.0 Tachycardia, unspecified; I45.10 Unspecified right bundle-branch block; E55.9 Vitamin D deficiency, unspecified; I36.1 Nonrheumatic tricuspid (valve) insufficiency; R94.31 Abnormal electrocardiogram [ECG] [EKG]; M81.0 Age-related osteoporosis without current pathological fracture; Z79.02 Long term (current) use of antithrombotics/antiplatelets; Z79.899 Other long term (current) drug therapy; Z86.73 Personal history of transient ischemic attack (TIA), and cerebral infarction without residual deficits; Z85.3 Personal history of malignant neoplasm of breast; Z92.3 Personal history of irradiation; Z92.21 Personal history of antineoplastic chemotherapy; Z80.8 Family history of malignant neoplasm of other organs or systems; Z82.49 Family history of ischemic heart disease and other diseases of the circulatory system; Z82.3 Family history of stroke
CPT/HCPCS: 36415; 70450; 71046; 80053; 82728; 83615; 83690; 83735; 84439; 84443; 84480; 84484; 85025; 85027; 85610; 85652; 85730; 86140; 87637; 93005; 93306; 96372; 99285; A9270; G0378; J1650; J7030

== ENCOUNTER 2022-06-28 09:27 | Outpatient (CLI) | payer MEDICARE, SELFPAY ==
[2022-06-28 10:07] LABS: Anion Gap 6 mmol/L (8-16); Blood Urea Nitrogen 7 mg/dL (7-17); Calcium 8.7 mg/dL (8.4-10.2); Carbon Dioxide 30 mmol/L (22-30); Chloride 97 mmol/L (98-107); Estimated Glomerular Filt Rate > 60; Glucose 98 mg/dL (65-110); Sodium 133 mmol/L (137-145)
== END 2022-06-28 09:28 | disposition home or self-care (01) ==
PROVIDERS: PCP Internal Medicine; Visit Provider Internal Medicine
DX: E87.1 Hypo-osmolality and hyponatremia (principal); R53.1 Weakness
CPT/HCPCS: 36415; 80048; 82607

== ENCOUNTER 2022-08-23 08:40 | Outpatient (CLI) | payer MEDICARE, SELFPAY ==
[2022-08-23 09:13] LABS: Alanine Aminotransferase 16 U/L (6-35); Albumin Level 3.9 g/dL (3.5-5.1); Alkaline Phosphatase 72 U/L (38-126); Anion Gap 7 mmol/L (8-16); Aspartate Amino Transferase 23 U/L (14-36); Bilirubin,Total 0.5 mg/dL (0.2-1.3); Blood Urea Nitrogen 8 mg/dL (7-17); Calcium 8.2 mg/dL (8.4-10.2); Carbon Dioxide 25 mmol/L (22-30); Chloride 99 mmol/L (98-107); Cholesterol 131 mg/dL (0-200); Estimated Glomerular Filt Rate > 60; Glucose 98 mg/dL (65-110); HDL Direct 51 mg/dL; Potassium 3.9 mmol/L (3.4-5.0); Sodium 131 mmol/L (137-145); Triglycerides 60 mg/dL (<150)
[2022-08-23 09:24] LABS: LDL Cholesterol Direct 50 mg/dL
[2022-08-23 09:41] LABS: Thyroid Stimulating Hormone 0.591 uIU/mL (0.465-4.680)
== END 2022-08-23 08:41 | disposition home or self-care (01) ==
PROVIDERS: Internal Medicine; PCP Internal Medicine; Visit Provider Internal Medicine
DX: E55.9 Vitamin D deficiency, unspecified (principal); Z79.899 Other long term (current) drug therapy; I10 Essential (primary) hypertension; E78.5 Hyperlipidemia, unspecified; E03.9 Hypothyroidism, unspecified
CPT/HCPCS: 36415; 80053; 80061; 82306; 84443

== ENCOUNTER 2023-03-03 11:46 | Outpatient (CLI) | payer MEDICARE, SELFPAY ==
[2023-03-03 12:51] LABS: Alanine Aminotransferase 18 U/L (6-35); Albumin Level 4.4 g/dL (3.5-5.1); Alkaline Phosphatase 71 U/L (38-126); Anion Gap 10 mmol/L (8-16); Aspartate Amino Transferase 28 U/L (14-36); Bilirubin,Total 0.8 mg/dL (0.2-1.3); Blood Urea Nitrogen 10 mg/dL (7-17); Calcium 8.8 mg/dL (8.4-10.2); Carbon Dioxide 27 mmol/L (22-30); Chloride 95 mmol/L (98-107); Cholesterol 140 mg/dL (0-200); Estimated Glomerular Filt Rate > 60; Glucose 92 mg/dL (65-110); HDL Direct 72 mg/dL; Sodium 132 mmol/L (137-145); Triglycerides 69 mg/dL (<150)
[2023-03-03 13:02] LABS: LDL Cholesterol Direct 53 mg/dL
[2023-03-03 13:10] LABS: Free T4 Free Thyroxine 1.71 ng/mL (0.78-2.19)
[2023-03-03 13:22] LABS: Thyroid Stimulating Hormone 0.446 uIU/mL (0.465-4.680)
== END 2023-03-03 11:47 | disposition home or self-care (01) ==
PROVIDERS: PCP Internal Medicine; Visit Provider Nurse Practitioner
DX: E78.5 Hyperlipidemia, unspecified (principal); E03.9 Hypothyroidism, unspecified
CPT/HCPCS: 36415; 80053; 80061; 84439; 84443

== ENCOUNTER 2024-03-19 09:22 | Outpatient (CLI) | payer MEDICARE, SELFPAY ==
[2024-03-19 10:02] LABS: Basophils Percent Auto 0.7 % (0.2-1.2); Eosinophils Absolute Auto 0.1 K/mm3 (0-0.3); Eosinophils Percent Auto 1.7 % (0-4.4); Hematocrit 41.6 % (37.0-47.0); Hemoglobin 14.1 g/dL (12.0-15.0); Immature Granulocyte Absolute 0.02 K/mm3 (0.00-0.031); Immature Granulocyte Percent A 0.5 % (0-0.5); Lymphocytes Absolute Auto 0.81 K/mm3 (0.9-3.2); Lymphocytes Percent Auto 19.2 % (18.3-44.2); Mean Corpuscular HGB Conc 33.9 g/dl (32-36); Mean Corpuscular Hemoglobin 31.5 pg (26-34); Mean Corpuscular Volume 92.9 fl (80-100); Mean Platelet Volume 9.9 fl (7.4-10.4); Monocytes Absolute Auto 0.4 K/mm3 (0.1-0.6); Monocytes Percent Auto 8.3 % (2.6-8.5); Neutrophils Absolute Auto 2.9 K/mm3 (1.3-6.7); Neutrophils Percent Auto 69.6 % (45.5-73.1); Platelet Count Result 209 k/mm3 (150-375); Red Blood Count 4.48 M/mm3 (4.2-5.4); Red Cell Distribution Width 12.3 % (11.5-14.5); White Blood Count 4.2 K/mm3 (4.5-10.0)
[2024-03-19 10:14] LABS: Alanine Aminotransferase 14 U/L (6-35); Albumin Level 4.6 g/dL (3.5-5.1); Alkaline Phosphatase 54 U/L (38-126); Anion Gap 8 mmol/L (4-12); Aspartate Amino Transferase 27 U/L (14-36); Bilirubin,Total 0.8 mg/dL (0.2-1.3); Blood Urea Nitrogen 9 mg/dL (7-17); Calcium 8.8 mg/dL (8.4-10.2); Carbon Dioxide 29 mmol/L (22-30); Chloride 97 mmol/L (98-107); Cholesterol 175 mg/dL (0-200); Estimated Glomerular Filt Rate > 60; Glucose 97 mg/dL (65-110); HDL Direct 70 mg/dL; Sodium 134 mmol/L (137-145); Triglycerides 98 mg/dL (<150)
[2024-03-19 10:25] LABS: LDL Cholesterol Direct 79 mg/dL
[2024-03-19 10:45] LABS: Thyroid Stimulating Hormone 0.407 uIU/mL (0.465-4.680)
[2024-03-19 10:49] LABS: Free T4 Free Thyroxine 1.31 ng/mL (0.78-2.19)
[2024-03-21 07:08] LABS: CA 15-3 19 U/mL (<32)
== END 2024-03-19 09:23 | disposition home or self-care (01) ==
PROVIDERS: PCP Nurse Practitioner Family; Referring Provider Nurse Practitioner Family; Visit Provider Internal Medicine Hematology & Oncology
DX: C50.511 Malignant neoplasm of lower-outer quadrant of right female breast (principal); E78.5 Hyperlipidemia, unspecified; I10 Essential (primary) hypertension; R01.1 Cardiac murmur, unspecified; E03.9 Hypothyroidism, unspecified; M85.80 Other specified disorders of bone density and structure, unspecified site; M15.0 Primary generalized (osteo)arthritis
CPT/HCPCS: 36415; 80053; 80061; 84439; 84443; 85025; 86300